=== PATIENT | female | born 1965 | race Caucasian/White ===

== ENCOUNTER 2018-05-12 21:59 | Emergency (ER) | payer OTHER ==
[~2018-05-12] VITALS: Ht 177.8 cm; Wt 88.5 kg
[~2018-05-12 21:59] MED LIST: CELEXA10 MG PO; CELEXA20 MG; CLARITIN10 M2 PO; CLEOCIN HCL300 MG PO; CYCLOBENZAPRINE5 MG PO; DICLOFENAC SODI75 MG PO; FLEXERIL PO; HYDROCODON-ACE1 EAC7 PO; HYDROCODONE-AP1 EAC6 PO; HYDROCODONE-APA1 TA1 PO; IBUPROFEN 800800 M1 PO; LIORESAL 10 MG10 MG PO; LORTAB 5-325 M1 EACH PO; MEDROLDOSEPACK PO; NORCO 5-325 TA1 EAC1 PO; NORCO 5-325 TA1 EACH PO; NORFLEX100 MG PO; PRILOSEC20 MG PO; PRINIVIL10 MG PO; ROBAXIN500 MG PO; TRAMADOL 50 MG50 MG PO; ZYRTEC
[2018-05-12] MEDS ORDERED: CLEOCIN HCL300 MG PO (22:35)
[2018-05-12] MEDS ORDERED: NORCO 5-325 TA1 EAC1 PO (22:35)
[2018-05-12 22:41] VITALS: BP 140/71
== END 2018-05-12 22:42 | disposition home or self-care (01) ==
LOC: M.ERS 21:59
DX: K11.5 Sialolithiasis (principal); I10 Essential (primary) hypertension; K21.9 Gastro-esophageal reflux disease without esophagitis; F17.210 Nicotine dependence, cigarettes, uncomplicated; Z88.6 Allergy status to analgesic agent

== ENCOUNTER 2018-05-21 23:33 | Emergency (ER) | payer OTHER ==
[~2018-05-21] VITALS: Ht 177.8 cm; Wt 88.0 kg
[2018-05-22] MEDS ORDERED: ACETAMINOPHEN-1 EAC1 PO (00:01)
[2018-05-22 00:05] VITALS: BP 167/71
== END 2018-05-22 00:05 | disposition home or self-care (01) ==
LOC: M.ERS 23:33
DX: K11.5 Sialolithiasis (principal); I10 Essential (primary) hypertension; F32.9 Major depressive disorder, single episode, unspecified; K21.9 Gastro-esophageal reflux disease without esophagitis; F17.210 Nicotine dependence, cigarettes, uncomplicated; Z88.6 Allergy status to analgesic agent

== ENCOUNTER 2018-08-20 00:08 | Emergency (ER) | payer OTHER ==
[~2018-08-20] VITALS: Ht 177.8 cm; Wt 88.5 kg
[~2018-08-20 00:08] MED LIST changes: +ACETAMINOPHEN-1 EAC1 PO
[2018-08-20] MEDS ORDERED: ACETAMINOPHEN-1 EAC1 PO ×2 (00:26→00:27)
[2018-08-20 00:30] VITALS: BP 153/103
== END 2018-08-20 00:42 | disposition home or self-care (01) ==
LOC: M.ERS 00:08
DX: K11.5 Sialolithiasis (principal); I10 Essential (primary) hypertension; F32.9 Major depressive disorder, single episode, unspecified; K21.9 Gastro-esophageal reflux disease without esophagitis

== ENCOUNTER 2018-10-31 22:20 | Emergency (ER) | payer OTHER ==
[~2018-10-31] VITALS: Ht 177.8 cm; Wt 88.9 kg
[2018-10-31] MEDS ORDERED: CLONIDINE HCL0.2 M2 PO (22:33)
[2018-10-31] MEDS ORDERED: CATAPRES0.2 M1 PO (22:46)
[2018-10-31] MEDS ORDERED: NORCO 5-325 TA1 EAC1 PO (22:46)
[2018-10-31 23:14] VITALS: BP 139/76
== END 2018-10-31 23:14 | disposition home or self-care (01) ==
LOC: M.ERS 22:20
DX: K11.5 Sialolithiasis (principal); R07.0 Pain in throat; F17.210 Nicotine dependence, cigarettes, uncomplicated; I10 Essential (primary) hypertension; F32.9 Major depressive disorder, single episode, unspecified; K21.9 Gastro-esophageal reflux disease without esophagitis; Z88.6 Allergy status to analgesic agent

== ENCOUNTER 2019-01-07 09:31 | Emergency (ER) | payer OTHER ==
[~2019-01-07] VITALS: Ht 177.8 cm; Wt 88.5 kg
[~2019-01-07 09:31] MED LIST changes: +CATAPRES0.2 M1 PO; +CLONIDINE HCL0.2 M2 PO
[2019-01-07 09:34] VITALS: BP 165/89
[2019-01-07] MEDS ORDERED: CATAPRES0.2 M1 PO (09:52)
== END 2019-01-07 10:02 | disposition home or self-care (01) ==
LOC: M.ERS 09:31
DX: F11.23 Opioid dependence with withdrawal (principal); Z76.0 Encounter for issue of repeat prescription; I10 Essential (primary) hypertension; F32.9 Major depressive disorder, single episode, unspecified; K21.9 Gastro-esophageal reflux disease without esophagitis; F17.210 Nicotine dependence, cigarettes, uncomplicated; Z98.890 Other specified postprocedural states; Z88.6 Allergy status to analgesic agent

== ENCOUNTER 2019-05-06 15:14 | Emergency (ER) | payer OTHER ==
[~2019-05-06] VITALS: Ht 177.8 cm; Wt 88.0 kg
[2019-05-06 15:17] VITALS: BP 122/74
[2019-05-06] MEDS ORDERED: CATAPRES0.2 MG PO (15:55)
== END 2019-05-06 16:00 | disposition home or self-care (01) ==
LOC: M.ERS 15:14
DX: I10 Essential (primary) hypertension (principal); Z76.0 Encounter for issue of repeat prescription; F32.9 Major depressive disorder, single episode, unspecified; K21.9 Gastro-esophageal reflux disease without esophagitis; F17.210 Nicotine dependence, cigarettes, uncomplicated; Z88.6 Allergy status to analgesic agent; Z98.51 Tubal ligation status

== ENCOUNTER 2019-06-16 10:14 | Emergency (ER) | payer OTHER ==
[~2019-06-16] VITALS: Ht 177.8 cm; Wt 108.4 kg
[~2019-06-16 10:14] MED LIST changes: +CATAPRES0.2 MG PO
[2019-06-16] MEDS ORDERED: NORCO 5-325 TA1 EAC1 PO (11:46)
[2019-06-16 12:43] VITALS: BP 145/79
[2019-07-06] MEDS ORDERED: TRAMADOL 50 MG50 MG PO (13:11)
== END 2019-06-16 12:44 | disposition home or self-care (01) ==
LOC: M.ERS 10:14
DX: M25.561 Pain in right knee (principal); R60.0 Localized edema; K21.9 Gastro-esophageal reflux disease without esophagitis; I10 Essential (primary) hypertension; F32.9 Major depressive disorder, single episode, unspecified; F17.210 Nicotine dependence, cigarettes, uncomplicated; Z98.51 Tubal ligation status; Z88.6 Allergy status to analgesic agent

== ENCOUNTER 2019-07-06 12:50 | Emergency (ER) | payer OTHER ==
[~2019-07-06] VITALS: Ht 177.8 cm; Wt 107.5 kg
[2019-07-06] MEDS ORDERED: CELEBREX 200 M200 M1 PO (12:58)
[2019-07-06] MEDS ORDERED: TRAMADOL 50 MG50 MG PO ×2 (13:11)
[2019-07-06 14:05] VITALS: BP 149/78
== END 2019-07-06 14:06 | disposition home or self-care (01) ==
LOC: M.ERS 12:50
DX: M25.561 Pain in right knee (principal); I10 Essential (primary) hypertension; F32.9 Major depressive disorder, single episode, unspecified; K21.9 Gastro-esophageal reflux disease without esophagitis; F17.210 Nicotine dependence, cigarettes, uncomplicated; Z98.51 Tubal ligation status; Z88.6 Allergy status to analgesic agent

== ENCOUNTER 2019-10-15 15:25 | Emergency (ER) | payer OTHER ==
[~2019-10-15] VITALS: Ht 177.8 cm; Wt 107.5 kg
[~2019-10-15 15:25] MED LIST changes: +CELEBREX 200 M200 M1 PO
[2019-10-15] MEDS ORDERED: PROTONIX40 M2 PO (15:41)
[2019-10-15] MEDS ORDERED: METFORMIN HCL500 MG PO (15:41)
[2019-10-15] MEDS ORDERED: LIPITOR10 MG PO (15:42)
[2019-10-15] MEDS ORDERED: CLONIDINE HCL0.2 M2 PO ×2 (15:58→16:07)
[2019-10-15 16:04] VITALS: BP 146/78
== END 2019-10-15 16:06 | disposition home or self-care (01) ==
LOC: M.ERS 15:25
DX: I10 Essential (primary) hypertension (principal); Z76.0 Encounter for issue of repeat prescription; K21.9 Gastro-esophageal reflux disease without esophagitis; F17.210 Nicotine dependence, cigarettes, uncomplicated; Z88.6 Allergy status to analgesic agent; Z98.51 Tubal ligation status

== ENCOUNTER 2019-11-18 13:04 | Emergency (ER) | payer OTHER ==
[~2019-11-18] VITALS: Ht 177.8 cm; Wt 116.6 kg
[~2019-11-18 13:04] MED LIST changes: +LIPITOR10 MG PO; +METFORMIN HCL500 MG PO; +PROTONIX40 M2 PO
[2019-11-18] MEDS ORDERED: CLONIDINE HCL0.2 M2 PO (13:58)
[2019-11-18 14:17] VITALS: BP 182/99
== END 2019-11-18 14:21 | disposition home or self-care (01) ==
LOC: M.ERS 13:04
DX: I10 Essential (primary) hypertension (principal); Z76.0 Encounter for issue of repeat prescription; K21.9 Gastro-esophageal reflux disease without esophagitis; F17.210 Nicotine dependence, cigarettes, uncomplicated; Z88.6 Allergy status to analgesic agent

== ENCOUNTER 2020-09-13 16:26 | Emergency (ER) | payer MEDICAID ==
[~2020-09-13] VITALS: Ht 177.8 cm; Wt 97.5 kg
[2020-09-13] MEDS ORDERED: CATAPRES0.2 MG PO (16:57)
[2020-09-13 17:04] VITALS: BP 122/69
== END 2020-09-13 17:05 | disposition home or self-care (01) ==
LOC: M.ERS 16:26
DX: I10 Essential (primary) hypertension (principal); Z76.0 Encounter for issue of repeat prescription; K21.9 Gastro-esophageal reflux disease without esophagitis; F17.210 Nicotine dependence, cigarettes, uncomplicated; Z88.6 Allergy status to analgesic agent; Z98.51 Tubal ligation status